=== PATIENT | male | born 1975 | race Caucasian/White ===

== ENCOUNTER 2019-08-13 15:42 | Emergency (ER) | payer MEDICAID ==
[2019-08-13] MEDS ORDERED: Sodium Chloride 0.9% 1000 ML 1,000 ML IV STA ×2 (16:02→18:17)
[2019-08-13] MEDS ORDERED: Hydromorphone 1 mg/ml Ampule IV ONE ×2 (16:02→16:47)
[2019-08-13] MEDS ORDERED: BENADRYL 50 MG/ML IV ONE (16:02)
[2019-08-13] MEDS ORDERED: Sodium Chloride 0.9% 1000 ML 1,000 ML ONE ×2 (16:07→18:19)
[2019-08-13] MEDS ORDERED: Hydromorphone 1 mg/ml Ampule ONE ×2 (16:07→16:47)
[2019-08-13] MEDS ORDERED: BENADRYL 50 MG/ML ONE (16:07)
--- NOTE | 2019-08-13 16:09 | ERPHSYRPT ---
- History of Present Illness Time Seen by Provider: 08/13/19 15:55 Historian: patient Exam Limitations: no limitations Physician History: Patient began having severe right lower abdominal pain/right flank pain after eating lunch prior to coming into the emergency department. Timing/Duration: hour(s) (3) Activities at Onset: none Quality: sharpness Abdominal Pain Onset Location: RLQ, flank (right) Pain Radiation: flank (right) Severity of Pain-Max: severe Severity of Pain-Current: severe Modifying Factors: Improves With: nothing Associated Symptoms: diaphoresis, No back, No chest pain, No diarrhea, No fever/ chills, No fatigue, No headache, No heartburn, No loss of appetite, No nausea, No neck pain, No rash, No shortness of breath, No syncope, No testicular pain, No vomiting, No weakness Previous symptoms: no prior history, no recent treatment Allergies/Adverse Reactions: No Known Drug Allergies Allergy (Verified 08/13/19 15:53) Home Medications: No Home Meds 05/10/12 [History] Hx Tetanus, Diphtheria Vaccination/Date Given: No Hx Influenza Vaccination/Date Given: No (REFUSE) Hx Pneumococcal Vaccination/Date Given: No (REFUSE) - Review of Systems Constitutional: No Fever, No Chills, No Fatigue Eyes: No Eye Pain, No Vision Changes Ears, Nose, & Throat: No Mouth Swelling, No Throat Swelling, No Painful Swallowing Respiratory: No Cough, No Dyspnea Cardiac: No Chest Pain, No Palpitations, No Syncope Abdominal/Gastrointestinal: Abdominal Pain, No Nausea, No Vomiting, No Constipation, No Hematemesis, No Hematochezia, No Melena Genitourinary Symptoms: Flank Pain, No Dysuria, No Frequency, No Hematuria, No Urinary Retention Musculoskeletal: No Back Pain, No Neck Pain Skin: No Pruritis, No Rash Neurological: No Focal Weakness, No Paralysis, No Parasthesia Psychological: No Anxiety Endocrine: No Excessive Sweating Hematologic/Lymphatic: No Easy Bleeding, No Easy Bruising All Other Systems: Reviewed and Negative - Past Medical History Pertinent Past Medical History: No Neurological History: No Pertinent History ENT History: No Pertinent History Cardiac History: No Pertinent History Respiratory History: No Pertinent History Endocrine Medical History: No Pertinent History Musculoskeletal History: No Pertinent History GI Medical History: No Pertinent History History: No Pertinent History Psycho-Social History: No Pertinent History Male Reproductive Disorders: No Pertinent History - Past Surgical History Past Surgical History: No Neuro Surgical History: No Pertinent History Cardiac: No Pertinent History Respiratory: No Pertinent History Gastrointestinal: No Pertinent History Genitourinary: No Pertinent History Musculoskeletal: No Pertinent History Male Surgical History: No Pertinent History - Social History Smoking Status: Former smoker Exposure to second hand smoke: No Drug Use: none Patient Lives Alone: No - Nursing Vital Signs Nursing Vital Signs: Initial Vital Signs Temperature 97.7 F 08/13/19 15:55 Pulse Rate 62 08/13/19 15:55 Respiratory Rate 20 08/13/19 15:55 Blood Pressure 130/79 08/13/19 15:55 O2 Sat by Pulse Oximetry 98 08/13/19 15:55 Pain Scale Pain Intensity 8 - Physical Exam General Appearance: mild distress Eye Exam: PERRL/EOMI, eyes nml inspection, No scleral icterus Ears, Nose, Throat Exam: pharynx normal, moist mucous membranes Neck Exam: normal inspection, non-tender, supple, full range of motion, No meningismus Respiratory Exam: normal breath sounds, lungs clear, airway intact, No chest tenderness, No respiratory distress, No diminished breath sounds, No accessory muscle use, No crackles/rales, No rhonchi, No wheezing, No stridor Cardiovascular Exam: regular rate/rhythm, normal heart sounds, normal peripheral pulses, capillary refill <2 sec, No friction rub Gastrointestinal/Abdomen Exam: soft, normal bowel sounds, No tenderness, No distention, No mass, No guarding, No ecchymosis, No rebound, No hernia Extremity Exam: normal inspection, normal range of motion, pelvis stable Neurologic Exam: alert, oriented x 3, cooperative, 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 Tiny mesenteric lymph nodes with stranding favoring adenitis at the left mid abdomen. No free fluid/area. Tiny calcified splenic granulomas. Mild sigmoid diverticulosis. Remaining liver, gallbladder, pancreas, spleen, adrenal glands, left kidney, left ureter, bladder , and aorta appear unremarkable for noncontrast exam. Osseous structures intact.) Ordered Tests: Active Orders 24 hr Category Date Time Status IV Insertion STAT Care 08/13/19 16:02 Active NPO (ED) STAT Care 08/13/19 16:02 Active Oxygen-ED Only Nasal Cannula 2 lpm Care 08/13/19 16:57 Active ABDOMEN AND PELVIS W/0 CONTRAS [CT] Stat Exams 08/13/19 16:03 Completed AMYLASE Stat Lab 08/13/19 16:15 Completed CBC W DIFF Stat Lab 08/13/19 16:15 Completed CMP Stat Lab 08/13/19 16:15 Completed LIPASE Stat Lab 08/13/19 16:15 Completed Lactic Acid Stat Lab 08/13/19 16:15 Completed Lactic Acid Stat Lab 08/13/19 18:48 Completed UA W/RFX UR CULTURE Stat Lab 08/13/19 17:53 Completed Medication Summary Generic Name Dose Route Start Last Admin Trade Name Freq PRN Reason Stop Dose Admin Sodium Chloride 1,000 mls @ 999 mls/hr 08/13/19 18:17 08/13/19 18:20 Sodium Chloride 0.9% 1000 Ml IV 08/13/19 19:17 999 mls/hr .Q1H1M STA Administration Discontinued Medications Generic Name Dose Route Start Last Admin Trade Name Freq PRN Reason Stop Dose Admin Diphenhydramine HCl 25 mg 08/13/19 16:02 08/13/19 16:11 Benadryl 50 Mg/Ml IV 08/13/19 16:03 25 mg STAT ONE Administration Diphenhydramine HCl Confirm 08/13/19 16:07 Benadryl 50 Mg/Ml Administered 08/13/19 16:08 Dose 50 mg .ROUTE .STK-MED ONE Hydromorphone HCl 1 mg 08/13/19 16:02 08/13/19 16:10 Hydromorphone 1 Mg/Ml Ampule IV 08/13/19 16:03 1 mg STAT ONE Administration Hydromorphone HCl Confirm 08/13/19 16:07 Hydromorphone 1 Mg/Ml Ampule Administered 10/21/19 16:08 Dose 1 mg .ROUTE .STK-MED ONE Hydromorphone HCl 1 mg 08/13/19 16:47 08/13/19 16:49 Hydromorphone 1 Mg/Ml Ampule IV 08/13/19 16:48 1 mg STAT ONE Administration Hydromorphone HCl Confirm 08/13/19 16:47 Hydromorphone 1 Mg/Ml Ampule Administered 08/13/19 16:48 Dose 1 mg .ROUTE .STK-MED ONE Sodium Chloride 1,000 mls @ 999 mls/hr 08/13/19 16:02 08/13/19 17:12 Sodium Chloride 0.9% 1000 Ml IV 08/13/19 17:02 Infused .Q1H1M STA Infusion Sodium Chloride Confirm 08/13/19 16:07 Sodium Chloride 0.9% 1000 Ml Administered 08/13/19 16:08 Dose 1,000 mls @ ud .ROUTE .STK-MED ONE Sodium Chloride Confirm 08/13/19 18:19 Sodium Chloride 0.9% 1000 Ml Administered 08/13/19 18:20 Dose 1,000 mls @ ud .ROUTE .STK-MED ONE Ketorolac Tromethamine 30 mg 08/13/19 17:05 08/13/19 17:09 Toradol 30 Mg Injection IV 08/13/19 17:06 30 mg STAT ONE Administration Ketorolac Tromethamine Confirm 08/13/19 17:06 Toradol 30 Mg Injection Administered 08/13/19 17:07 Dose 30 mg .ROUTE .STK-MED ONE Morphine Sulfate 4 mg 08/13/19 18:30 08/13/19 18:32 Morphine Sulfate 4 Mg Inj IV 08/13/19 18:31 4 mg STAT ONE Administration Morphine Sulfate Confirm 08/13/19 18:31 Morphine Sulfate 4 Mg Inj Administered 08/13/19 18:32 Dose 4 mg .ROUTE .STK-MED ONE Lab/Rad Data: Laboratory Result Diagrams 08/13/19 16:15 08/13/19 16:15 Laboratory Results 08/13/19 08/13/19 08/13/19 Range/Units 18:48 17:53 16:15 WBC (4.0-10.5) K/mm3 RBC (4.1-5.6) M/mm3 Hgb (12.5-18.0) gm/dl Hct (42-50) % MCV (78-100) fl MCH (26-32) pg MCHC (32-36) g/dl RDW (11.5-14.0) % Plt Count (150-450) K/mm3 MPV (6-9.5) fl Gran % (36.0-66.0) % Eos # (Auto) (0-0.5) Absolute Lymphs (auto) (1.0-4.6) Absolute Monos (auto) (0.0-1.3) Lymphocytes % (24.0-44.0) % Monocytes % (0.0-12.0) % Eosinophils % (0.00-5.0) % Basophils % (0.0-0.4) % Absolute Granulocytes (1.4-6.9) Basophils # (0-0.4) Sodium 143 (137-145) mmol/L Potassium 4.0 (3.5-5.1) mmol/L Chloride 102 (98-107) mmol/L Carbon Dioxide 29 (22-30) mmol/L Anion Gap 15.1 H (5-15) MEQ/L BUN 11 (9-20) mg/dL Creatinine 1.01 (0.66-1.25) mg/dL Estimated GFR > 60.0 ML/MIN Glucose 135 H (74-106) mg/dL Lactic Acid 1.2 (0.4-2.0) Calcium 9.1 (8.4-10.2) mg/dL Total Bilirubin 1.00 (0.2-1.3) mg/dL AST 26 (17-59) U/L ALT 24 (0-50) U/L Alkaline Phosphatase 66 (38-126) U/L Serum Total Protein 7.2 (6.3-8.2) g/dL Albumin 4.4 (3.5-5.0) g/dL Amylase 96 (30-110) U/L Lipase 137 (23-300) U/L Urine Color YELLOW (YELLOW) Urine Appearance SLIGHTLY CLOUDY (CLEAR) Urine pH 5.0 (5-6) Ur Specific [place] 1.019 (1.005-1.025) Urine Protein NEGATIVE (Negative) Urine Ketones NEGATIVE (NEGATIVE) Urine Blood LARGE (0-5) Armando/ul Urine Nitrite NEGATIVE (NEGATIVE) Urine Bilirubin NEGATIVE (NEGATIVE) Urine Urobilinogen 2 (0-1) mg/dL Ur Leukocyte Esterase NEGATIVE (NEGATIVE) Urine WBC (Auto) 11-15 (0-5) /HPF Urine RBC (Auto) >101 (0-2) /HPF U Epithel Cells (Auto) NONE (FEW) /HPF Urine Bacteria (Auto) NONE (NEGATIVE) /HPF Urine Mucus (Auto) MANY (NEGATIVE) /HPF Urine Culture Reflexed NO (NO) Urine Glucose NEGATIVE (NEGATIVE) mg/dL 08/13/19 08/13/19 Range/Units 16:15 16:15 WBC 7.5 (4.0-10.5) K/mm3 RBC 4.84 (4.1-5.6) M/mm3 Hgb 14.8 (12.5-18.0) gm/dl Hct 43.7 (42-50) % MCV 90.3 (78-100) fl MCH 30.6 (26-32) pg MCHC 33.9 (32-36) g/dl RDW 12.8 (11.5-14.0) % Plt Count 181 (150-450) K/mm3 MPV 12.7 H (6-9.5) fl Gran % 55.5 (36.0-66.0) % Eos # (Auto) 0.17 (0-0.5) Absolute Lymphs (auto) 2.59 (1.0-4.6) Absolute Monos (auto) 0.56 (0.0-1.3) Lymphocytes % 34.4 (24.0-44.0) % Monocytes % 7.4 (0.0-12.0) % Eosinophils % 2.3 (0.00-5.0) % Basophils % 0.4 (0.0-0.4) % Absolute Granulocytes 4.17 (1.4-6.9) Basophils # 0.03 (0-0.4) Sodium (137-145) mmol/L Potassium (3.5-5.1) mmol/L Chloride (98-107) mmol/L Carbon Dioxide (22-30) mmol/L Anion Gap (5-15) MEQ/L BUN (9-20) mg/dL Creatinine (0.66-1.25) mg/dL Estimated GFR ML/MIN Glucose (74-106) mg/dL Lactic Acid 2.2 H (0.4-2.0) Calcium (8.4-10.2) mg/dL Total Bilirubin (0.2-1.3) mg/dL AST (17-59) U/L ALT (0-50) U/L Alkaline Phosphatase (38-126) U/L Serum Total Protein (6.3-8.2) g/dL Albumin (3.5-5.0) g/dL Amylase (30-110) U/L Lipase (23-300) U/L Urine Color (YELLOW) Urine Appearance (CLEAR) Urine pH (5-6) Ur Specific [place] (1.005-1.025) Urine Protein (Negative) Urine Ketones (NEGATIVE) Urine Blood (0-5) Armando/ul Urine Nitrite (NEGATIVE) Urine Bilirubin (NEGATIVE) Urine Urobilinogen (0-1) mg/dL Ur Leukocyte Esterase (NEGATIVE) Urine WBC (Auto) (0-5) /HPF Urine RBC (Auto) (0-2) /HPF U Epithel Cells (Auto) (FEW) /HPF Urine Bacteria (Auto) (NEGATIVE) /HPF Urine Mucus (Auto) (NEGATIVE) /HPF Urine Culture Reflexed (NO) Urine Glucose (NEGATIVE) mg/dL - Progress Progress: improved Progress Note: 08/13/19 19:01 Patient's pain is better improved. Patient's lactic acid improved with IV hydration. Patient will be discharged home as he has no acute intra-abdominal findings, no acute renal failure, no signs of infection on [place] urinalysis, and no immediate urologic intervention needed. Counseled pt/family regarding: lab results, diagnosis, need for follow-up, rad results - Departure Departure Disposition: Home, In-patient Admission Clinical Impression: Ureteral colic, Lower obstructive uropathy, Ureterolithiasis, Mesenteric adenitis, Sigmoid diverticulosis Condition: Good Critical Care Time: No Referrals: ROLANDA TIMMONS [Primary Care Provider] - 08/14/19 Instructions: Acute Abdomen (Belly Pain), Adult (DC), Kidney Stones (DC), Diverticulosis (DC) Additional Instructions: Return immediately back to the emergency department if any worsening pain, inability to take medications, uncontrollable vomiting, new fever, inability urinate, or any other concerning signs or symptoms that were not present at today's emergency department visit for immediate re-evaluation in the emergency department. Prescriptions: Oxycodone HCl/Acetaminophen [Percocet 5-325 mg Tablet] 1 each PO Q6H PRN PRN # 12 tablet MDD 4 PRN Reason: Pain Ondansetron ODT 4 MG [Zofran Odt 4 mg] 4 mg PO Q8H PRN PRN #10 tab.rapdis PRN Reason: Nausea Tamsulosin HCl 0.4 mg [Flomax 0.4 MG] 0.4 mg PO DAILY #7 cap
[2019-08-13 16:19] LABS: Absolute Neutrophil Ct (ANC) 4.17 (1.4-6.9); BASOPHIL % 0.4 % (0.0-0.4); Basophil (Absolute #) 0.03 (0-0.4); Eosinophil % 2.3 % (0.00-5.0); Eosinophil (Absolute #) 0.17 (0-0.5); Hematocrit 43.7 % (42-50); Hemoglobin 14.8 gm/dl (12.5-18.0); Lymphocyte (Absolute #) 2.59 (1.0-4.6); Lymphocytes % 34.4 % (24.0-44.0); Mean Cell Volume 90.3 fl (78-100); Mean Corpuscular Hemoglobin 30.6 pg (26-32); Mean Corpuscular Hgb Concent. 33.9 g/dl (32-36); Mean Platelet Volume 12.7 fl (6-9.5); Monocyte (Absolute #) 0.56 (0.0-1.3); Monocytes % 7.4 % (0.0-12.0); Neutrophil % 55.5 % (36.0-66.0); Platelet Count 181 K/mm3 (150-450); Red Blood Count 4.84 M/mm3 (4.1-5.6); Red Cell Distribution Width 12.8 % (11.5-14.0); White Blood Count 7.5 K/mm3 (4.0-10.5)
[2019-08-13 16:20] LABS: Lactic Acid 2.2 (0.4-2.0)
[2019-08-13 16:32] LABS: ALBUMIN 4.4 g/dL (3.5-5.0); ALKALINE PHOSPHATASE 66 U/L (38-126); AMYLASE 96 U/L (30-110); ANION GAP 15.1 MEQ/L (5-15); BLOOD UREA NITROGEN 11 mg/dL (9-20); CHLORIDE 102 mmol/L (98-107); Calcium 9.1 mg/dL (8.4-10.2); Carbon Dioxide 29 mmol/L (22-30); Creatinine 1 1.01 mg/dL (0.66-1.25); Glucose 135 mg/dL (74-106); LIPASE 137 U/L (23-300); SGOT/AST 26 U/L (17-59); SGPT/ALT 24 U/L (0-50); SODIUM 143 mmol/L (137-145); Total Protein 7.2 g/dL (6.3-8.2)
[2019-08-13 16:54] VITALS: PULSE 60
--- NOTE | 2019-08-13 17:01 | XRAY ---
Indication: Right flank/right lower quadrant pain. Multiple contiguous axial images obtained through the abdomen and pelvis without contrast as ordered. Comparison: None Lung bases demonstrates posterior right lower lobe calcified granuloma. No infiltrate or effusion. Heart is not enlarged. Stomach is distended with food/fluid. Noncontrasted stomach and bowel loops appear nonobstructed. Normal appendix. Minimal sigmoid diverticulosis. 1-2 mm distal right ureter calculus just proximal to the UVJ. Proximal right ureter is slightly prominent up to 5-6 mm along with mild hydronephrosis consistent with partial obstructive uropathy. Left mid abdomen demonstrates a few tiny mesenteric nodes with stranding favoring adenitis. No free fluid/air. Tiny calcified splenic granulomas. Remaining liver, gallbladder, pancreas, spleen, adrenal glands, left kidney, left ureter, bladder, and aorta appear unremarkable for noncontrast exam. Osseous structures intact. Impression: 1. 1-2 mm distal right ureter calculus producing partial obstruction. 2. Tiny mesenteric lymph nodes with stranding favoring adenitis. 3. Minimal sigmoid diverticulosis. CTDI 15.95.
[2019-08-13] MEDS ORDERED: TORAdol 30 mg Injection IV ONE (17:05)
[2019-08-13] MEDS ORDERED: TORAdol 30 mg Injection ONE (17:06)
[2019-08-13 18:18] LABS: Appearance SLIGHTLY CLOUDY (CLEAR); Bilirubin NEGATIVE (NEGATIVE); Blood LARGE Ery/ul (0-5); Glucose NEGATIVE (NEGATIVE); Ketones NEGATIVE (NEGATIVE); Leukocyte Esterase NEGATIVE (NEGATIVE); Mucus MANY /HPF (NEGATIVE); Nitrite NEGATIVE (NEGATIVE); Protein,Urine Dip NEGATIVE (Negative); Specific Gravity 1.019 (1.005-1.025); Urobilinogen 2 mg/dL (0-1)
[2019-08-13 18:21] VITALS: BP 109/72; O2SAT 98
[2019-08-13 18:26] LABS: RBC >101 /HPF (0-2)
[2019-08-13] MEDS ORDERED: MORPHINE SULFATE 4 MG INJ IV ONE (18:30)
[2019-08-13] MEDS ORDERED: MORPHINE SULFATE 4 MG INJ ONE (18:31)
== END 2019-08-13 19:22 | disposition home or self-care (01) ==
LOC: ED 15:42
DX: N20.1 Calculus of ureter (principal); N13.9 Obstructive and reflux uropathy, unspecified; Z87.442 Personal history of urinary calculi; I88.0 Nonspecific mesenteric lymphadenitis; K57.30 Diverticulosis of large intestine without perforation or abscess without bleeding
CPT/HCPCS: 36000; 36415; 74176; 80053; 81001; 82150; 83605; 83690; 85025; 96360; 96374; 96375; 96376; 99285; J1170; J1200; J1885; J2270

== ENCOUNTER 2020-04-08 21:31 | Emergency (ER) | payer MEDICAID ==
[2020-04-08] MEDS ORDERED: Zofran 4 MG/2 ML VIAL IV ONE (22:04)
[2020-04-08] MEDS ORDERED: Sodium Chloride 0.9% 1000 ML 1,000 ML IV STA (22:04)
[2020-04-08] MEDS ORDERED: MORPHINE SULFATE 2 MG INJ IV ONE (22:04)
[2020-04-08] MEDS ORDERED: Sodium Chloride 0.9% 1000 ML 1,000 ML ONE (22:17)
--- NOTE | 2020-04-08 22:23 | ERPHSYRPT ---
- History of Present Illness Time Seen by Provider: 04/08/20 21:50 Historian: patient Exam Limitations: no limitations Patient Subjective Stated Complaint: pt states that he was using a cord drill to drill through concrete, pt states that the drill had jammed and spun around at hit the pt left ribs and back, pt states that he had appointment with primary doctor tomorrow but doctor office cancled appointment, pt states that the pain has been increasing the past couple of days Triage Nursing Assessment: pt ambulated into the er, pt is axo x3, pt is anxious, c/o pain to left rib and left back, deformity to the left lower ribs, bruising to left middle rib and left middle back, c/o 5/10 pain to left ribs, tenderness present to left ribs upon palpation Physician History: Patient is a 45-year-old male presents to our ED with left upper quadrant and flank pain. Patient states he injured himself Tuesday, 3 days ago. Patient was drilling into concrete when the drill got stuck into the concrete and rotated the drill thereby striking him onto his left side. Patient's pain has gotten progressively worse over the past several days. No other injuries reported. Pain described as an ache that is well localized to the left flank. Pain tends to radiate to his back. Pain worse with movement and palpation. Pain improved with rest. Pain is mild to moderate in intensity. Patient declined pain medication. Patient voices no other complaints at this time. 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.) Quality: aching Abdominal Pain Onset Location: [facility] Pain Radiation: back Severity of Pain-Max: moderate Severity of Pain-Current: mild Modifying Factors: Improves With: movement, palpation Previous symptoms: no prior history Allergies/Adverse Reactions: No Known Drug Allergies Allergy (Verified 04/08/20 21:39) Hx Tetanus, Diphtheria Vaccination/Date Given: No (REFUSE) Hx Influenza Vaccination/Date Given: No (REFUSE) Hx Pneumococcal Vaccination/Date Given: No (REFUSE) Travel Risk - International Travel Have you traveled outside of the country in past 3 weeks: No - Coronavirus Screening Are you exhibiting any of the following symptoms?: No Close contact with a COVID-19 positive Pt in past 14-21 Days: No - Review of Systems Constitutional: No Symptoms, No Fever, No Chills Eyes: No Symptoms Ears, Nose, & Throat: No Symptoms Respiratory: No Symptoms, No Cough, No Dyspnea Cardiac: No Symptoms, No Chest Pain, No Edema, No Syncope Abdominal/Gastrointestinal: No Symptoms, No Abdominal Pain, No Nausea, No Vomiting, No Diarrhea Genitourinary Symptoms: No Symptoms, No Dysuria Musculoskeletal: No Symptoms, No Back Pain, No Neck Pain Skin: No Symptoms, No Rash Neurological: No Symptoms, No Dizziness, No Focal Weakness, No Sensory Changes Psychological: No Symptoms Endocrine: No Symptoms Hematologic/Lymphatic: No Symptoms Immunological/Allergic: No Symptoms All Other Systems: Reviewed and Negative - Past Medical History Pertinent Past Medical History: No Neurological History: No Pertinent History ENT History: No Pertinent History Cardiac History: No Pertinent History Respiratory History: No Pertinent History Endocrine Medical History: No Pertinent History Musculoskeletal History: No Pertinent History GI Medical History: No Pertinent History History: No Pertinent History Psycho-Social History: No Pertinent History Male Reproductive Disorders: No Pertinent History - Past Surgical History Past Surgical History: No Neuro Surgical History: No Pertinent History Cardiac: No Pertinent History Respiratory: No Pertinent History Gastrointestinal: No Pertinent History Genitourinary: No Pertinent History Musculoskeletal: No Pertinent History Male Surgical History: No Pertinent History - Social History Smoking Status: Former smoker Exposure to second hand smoke: No Drug Use: none Patient Lives Alone: No - Nursing Vital Signs Nursing Vital Signs: Initial Vital Signs Temperature 98.9 F 04/08/20 21:40 Pulse Rate 74 04/08/20 21:40 Respiratory Rate 20 04/08/20 21:40 Blood Pressure 131/87 04/08/20 21:40 O2 Sat by Pulse Oximetry 97 04/08/20 21:40 Pain Scale Pain Intensity [Left Back] 5 Pain Intensity [Left Chest] 5 Pain Intensity 5 - Physical Exam General Appearance: no apparent distress, alert Eye Exam: PERRL/EOMI, eyes nml inspection Ears, Nose, Throat Exam: normal ENT inspection, pharynx normal, moist mucous membranes Neck Exam: normal inspection, non-tender, supple, full range of motion Respiratory Exam: normal breath sounds, lungs clear, No respiratory distress Cardiovascular Exam: regular rate/rhythm, normal heart sounds Gastrointestinal/Abdomen Exam: soft, tenderness, other (Tenderness to palpation at left upper quadrant left flank and posterior lateral rib area. Overlying soft tissue intact. No trauma no ecchymosis. Negative Castro Canas sign. Negative Nenzel sign. Lungs are clear to auscultation bilaterally.), No mass Male Genitalia Exam: normal genitalia Back Exam: normal inspection, normal range of motion, No CVA tenderness, No vertebral tenderness Extremity Exam: normal inspection, normal range of motion, pelvis stable Neurologic Exam: alert, oriented x 3, cooperative, normal mood/affect, nml cerebellar function, sensation nml, No motor deficits Skin Exam: normal color, warm, dry SpO2 Interpretation: normal SpO2: 97 O2 Delivery: Room Air - Course Nursing assessment & vital signs reviewed: Yes - CT Exams Abdomen/Pelvis CT Interpretation: Tele-radiologist Report (Stigmata of old granulomatous disease, nonspecific bowel wall thickening and haziness in the mesentery, please correlate for evidence of enteritis. Patient has no clinical evidence of enteritis.) Ordered Tests: Active Orders 24 hr Category Date Time Status IV Insertion STAT Care 04/08/20 22:04 Active ABDOMEN AND PELVIS W CONTRAST [CT] Stat Exams 04/08/20 22:10 Taken CBC W DIFF Stat Lab 04/08/20 22:25 Completed CMP Stat Lab 04/08/20 22:25 Completed LIPASE Stat Lab 04/08/20 22:25 Completed TROPONIN Q3H Lab 04/08/20 22:25 Completed TROPONIN Q3H Lab 04/09/20 01:15 Ordered TROPONIN Q3H Lab 04/09/20 04:15 Ordered TROPONIN Q3H Lab 04/09/20 07:15 Ordered TROPONIN Q3H Lab 04/09/20 10:15 Ordered UA W/RFX UR CULTURE Stat Lab 04/08/20 22:10 Uncollected Medication Summary Discontinued Medications Generic Name Dose Route Start Last Admin Trade Name Freq PRN Reason Stop Dose Admin Sodium Chloride 1,000 mls @ 999 mls/hr 04/08/20 22:04 04/08/20 23:32 Sodium Chloride 0.9% 1000 Ml IV 04/08/20 23:04 Infused .Q1H1M STA Infusion Sodium Chloride Confirm 04/08/20 22:17 Sodium Chloride 0.9% 1000 Ml Administered 04/08/20 22:18 Dose 1,000 mls @ ud .ROUTE .STK-MED ONE Morphine Sulfate 2 mg 04/08/20 22:04 04/08/20 22:46 Morphine Sulfate 2 Mg Inj IV 04/08/20 22:05 2 mg STAT ONE Administration Morphine Sulfate Confirm 04/08/20 22:38 Morphine Sulfate 2 Mg Inj Administered 04/08/20 22:39 Dose 2 mg .ROUTE .STK-MED ONE Ondansetron HCl 4 mg 04/08/20 22:04 04/08/20 22:40 Zofran 4 Mg/2 Ml Vial IV 04/08/20 22:05 4 mg STAT ONE Administration Ondansetron HCl Confirm 04/08/20 22:38 Zofran 4 Mg/2 Ml Vial Administered 04/08/20 22:39 Dose 4 mg .ROUTE .STK-MED ONE Lab/Rad Data: Laboratory Result Diagrams 04/08/20 22:25 04/08/20 22:25 Laboratory Results 04/08/20 04/08/20 04/08/20 Range/Units 22:25 22:25 22:25 WBC 9.2 (4.0-10.5) K/mm3 RBC 4.93 (4.1-5.6) M/mm3 Hgb 15.1 (12.5-18.0) gm/dl Hct 44.6 (42-50) % MCV 90.5 (78-100) fl MCH 30.6 (26-32) pg MCHC 33.9 (32-36) g/dl RDW 12.6 (11.5-14.0) % Plt Count 186 (150-450) K/mm3 MPV 12.2 H (7.5-11.0) fl Gran % 66.4 H (36.0-66.0) % Eos # (Auto) 0.22 (0-0.5) Absolute Lymphs (auto) 2.25 (1.0-4.6) Absolute Monos (auto) 0.61 (0.0-1.3) Lymphocytes % 24.4 (24.0-44.0) % Monocytes % 6.6 (0.0-12.0) % Eosinophils % 2.4 (0.00-5.0) % Basophils % 0.2 (0.0-0.4) % Absolute Granulocytes 6.14 (1.4-6.9) Basophils # 0.02 (0-0.4) Sodium 140 (137-145) mmol/L Potassium 3.9 (3.5-5.1) mmol/L Chloride 103 (98-107) mmol/L Carbon Dioxide 29 (22-30) mmol/L Anion Gap 12.4 (5-15) MEQ/L BUN 9 (9-20) mg/dL Creatinine 0.87 (0.66-1.25) mg/dL Estimated GFR > 60.0 ML/MIN Glucose 124 H (74-106) mg/dL Calcium 9.2 (8.4-10.2) mg/dL Total Bilirubin 1.30 (0.2-1.3) mg/dL AST 25 (17-59) U/L ALT 20 (0-50) U/L Alkaline Phosphatase 66 (38-126) U/L Troponin I < 0.012 (0.000-0.034) ng/mL Serum Total Protein 7.3 (6.3-8.2) g/dL Albumin 4.4 (3.5-5.0) g/dL Lipase 72 (23-300) U/L - Progress Progress: improved Progress Note: 04/09/20 00:01 Patient reassessed. Work-up essentially negative. Nonspecific bowel wall thickening and haziness in the mesentery possible enteritis. Patient has no clinical evidence of enteritis. No splenic injury. No fractures. Patient will be discharged home. Patient follow-up with his primary care doctor within 48 hours for reevaluation. Counseled pt/family regarding: lab results, diagnosis, need for follow-up, rad results - Departure Departure Disposition: Home Clinical Impression: Contusion, flank, Abdominal contusion Condition: Stable Critical Care Time: No Referrals: ROLANDA TIMMONS [Primary Care Provider] - Additional Instructions: Discharge/Care Plan ROLANDA ORTEGA was seen on 04/09/20 in the Emergency Room. The patient was counseled regarding Diagnosis,Lab results, Imaging studies, need for follow up and when to return to the Emergency Room. Prescriptions given: Discharge Note I have spoken with the patient and/or caregivers. I have explained the patient's condition, diagnosis and treatment plan based on the information available to me at this time. I have answered the patient's and/or caregiver's questions and addressed any concerns. The patient and/or caregivers have as good understanding of the patient's diagnosis, condition and treatment plan as can be expected at this point. The vital signs have been stable. The patient's condition is stable and appropriate for discharge from the emergency department. The patient will pursue further outpatient evaluation with the primary care physician or other designated or consulting physician as outlined in the discharge instructions. The patient and/or caregivers are agreeable to this plan of care and follow-up instructions have been explained in detail. The patient and/or caregivers have received these instruction. The patient/and or caregivers are aware that any significant change in condition or worsening of symptoms should prompt an immediate return to this or the closest emergency department or call 911.
[2020-04-08 22:31] LABS: Absolute Neutrophil Ct (ANC) 6.14 (1.4-6.9); BASOPHIL % 0.2 % (0.0-0.4); Basophil (Absolute #) 0.02 (0-0.4); Eosinophil % 2.4 % (0.00-5.0); Eosinophil (Absolute #) 0.22 (0-0.5); Hematocrit 44.6 % (42-50); Hemoglobin 15.1 gm/dl (12.5-18.0); Lymphocyte (Absolute #) 2.25 (1.0-4.6); Lymphocytes % 24.4 % (24.0-44.0); Mean Cell Volume 90.5 fl (78-100); Mean Corpuscular Hemoglobin 30.6 pg (26-32); Mean Corpuscular Hgb Concent. 33.9 g/dl (32-36); Mean Platelet Volume 12.2 fl (7.5-11.0); Monocyte (Absolute #) 0.61 (0.0-1.3); Monocytes % 6.6 % (0.0-12.0); Neutrophil % 66.4 % (36.0-66.0); Platelet Count 186 K/mm3 (150-450); Red Blood Count 4.93 M/mm3 (4.1-5.6); Red Cell Distribution Width 12.6 % (11.5-14.0); White Blood Count 9.2 K/mm3 (4.0-10.5)
[2020-04-08] MEDS ORDERED: MORPHINE SULFATE 2 MG INJ ONE (22:38)
[2020-04-08] MEDS ORDERED: Zofran 4 MG/2 ML VIAL ONE (22:38)
[2020-04-08 22:48] LABS: ALBUMIN 4.4 g/dL (3.5-5.0); ALKALINE PHOSPHATASE 66 U/L (38-126); ANION GAP 12.4 MEQ/L (5-15); BLOOD UREA NITROGEN 9 mg/dL (9-20); CHLORIDE 103 mmol/L (98-107); Calcium 9.2 mg/dL (8.4-10.2); Carbon Dioxide 29 mmol/L (22-30); Creatinine 1 0.87 mg/dL (0.66-1.25); Glucose 124 mg/dL (74-106); LIPASE 72 U/L (23-300); Potassium 3.9 mmol/L (3.5-5.1); SGOT/AST 25 U/L (17-59); SGPT/ALT 20 U/L (0-50); SODIUM 140 mmol/L (137-145); Total Protein 7.3 g/dL (6.3-8.2)
[2020-04-09 00:02] VITALS: BP 104/67; PULSE 57; O2SAT 97
[2020-04-09 00:32] LABS: Appearance CLEAR (CLEAR); Bacteria NONE SEEN /HPF (NEGATIVE); Bilirubin NEGATIVE (NEGATIVE); Blood NEGATIVE Ery/ul (0-5); Glucose NEGATIVE (NEGATIVE); Ketones NEGATIVE (NEGATIVE); Leukocyte Esterase NEGATIVE (NEGATIVE); Mucus SLIGHT /HPF (NEGATIVE); Nitrite NEGATIVE (NEGATIVE); Protein,Urine Dip NEGATIVE (Negative); RBC 0-2 /HPF (0-2); Specific Gravity 1.028 (1.005-1.025); Sperm PRESENT /HPF (NEGATIVE); Urobilinogen NEGATIVE mg/dL (0-1); WBC 0-2 /HPF (0-5)
--- NOTE | 2020-04-09 08:52 | XRAY ---
Indication: Pain following blunt trauma to the back. Possible splenic laceration. Multiple contiguous axial images obtained through the abdomen and pelvis using 80 cc Isovue 370 contrast only. Comparison: August 13, 2019. Lung bases demonstrates minimal bibasilar dependent atelectasis with stable right lower lobe calcified granulomas. No infiltrate or effusion. Heart is not enlarged. Noncontrasted stomach and bowel loops appear nonobstructed. Stable minimal sigmoid diverticulosis and splenic calcific granulomas. No free fluid/air. Remaining liver, gallbladder, pancreas, spleen, adrenal glands, kidneys, ureters, bladder, and aorta appear unremarkable. No pathologic retroperitoneal lymphadenopathy. Osseous structures demonstrates new tiny cortical fracture lateral arc left 9th rib. No ventral or inguinal hernias. Impression: 1. Tiny cortical fracture left 9th rib. 2. Stable sigmoid diverticulosis and evidence for old granulomatous disease. Comment: Preliminary interpretation was made by [facility]. No critical discrepancy.
== END 2020-04-09 00:13 | disposition home or self-care (01) ==
LOC: ED 21:31
DX: S30.1XXA Contusion of abdominal wall, initial encounter (principal); W31.0XXA Contact with mining and earth-drilling machinery, initial encounter
CPT/HCPCS: 36000; 36415; 74177; 80053; 81001; 83690; 84484; 85025; 93005; 93041; 94760; 96360; 96374; 96375; 99284; J2270; J2405

== ENCOUNTER 2022-06-25 06:04 | Day surgery (SDC) | payer OTHER ==
[2022-06-25] MEDS ORDERED: Marcaine Mpf 0.5% Vial 30 Ml IJ ONE (06:05)
[2022-06-25] MEDS ORDERED: XYLOCAINE 1% HCL 20 ML MDV ONE (06:18)
[2022-06-25] MEDS ORDERED: Lactated Ringers 1,000 ML IV ONE ×3 (06:18→11:00)
[2022-06-25] MEDS ORDERED: CEFAZOLIN 2 GM-D5W BAG** 2 GM/50 ML ML IV SCH (06:30)
[2022-06-25] MEDS ORDERED: Lactated Ringers 1,000 ML IV SCH (06:30)
[2022-06-25] MEDS ORDERED: CEFAZOLIN 2 GM-D5W BAG** 2 GM/50 ML ML IV ONE (06:48)
[2022-06-25] MEDS ORDERED: Versed 2 MG/2 ML Injection ONE (06:59)
[2022-06-25] MEDS: Versed 2 MG/2 ML Injection IV PRN ×2 (07:02→09:30)
[2022-06-25] MEDS ORDERED: Xylocaine-Mpf 2% 5 Ml Vial ONE (09:29)
[2022-06-25] MEDS ORDERED: Zofran 4 MG/2 ML VIAL ONE (09:29)
[2022-06-25] MEDS ORDERED: Zemuron 100 MG/10 ML ONE (09:29)
[2022-06-25] MEDS ORDERED: SUBLIMAZE 100 MCG/2 ML ONE ×2 (09:29→10:24)
[2022-06-25] MEDS ORDERED: Decadron 4 MG INJ ONE (09:29)
[2022-06-25] MEDS ORDERED: BRIDION 200MG/2ML IV ONE (09:29)
[2022-06-25] MEDS ORDERED: DIPRIVAN 200 MG/20 ML IV ONE (09:29)
[2022-06-25] MEDS ORDERED: TORAdol 30 mg Injection ONE (09:29)
[2022-06-25] MEDS ORDERED: ATROPINE SULFATE 1MG ONE (10:21)
[2022-06-25] MEDS ORDERED: Narcan 0.4 MG/ML ONE (11:12)
[2022-06-25 12:23] VITALS: O2SAT 96
[2022-06-25 12:44] VITALS: BP 134/89; PULSE 56
--- NOTE | 2022-06-29 12:40 | OP ---
SURGERY DATE/TIME: 06/25/2022 1000 PREOPERATIVE DIAGNOSES: 1) Pain left foot. 2) Deep peroneal neuropathy left foot. 3) Soft tissue possible ganglion cyst left foot. 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 POSTOPERATIVE DIAGNOSES: 1) Pain left foot. 2) Deep peroneal neuropathy left foot. 3) Soft tissue possible ganglion cyst left foot. 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 PROCEDURES: 1) Removal of soft tissue mass left foot metatarsal head. 2) Deep peroneal nerve decompression left foot. SURGEON: Moris Cazares DPM. CLINICAL EDUCATION CONSULTANT: None. ANESTHESIA: General with a preoperative ankle block consisting of 30 cc of a 1:1 mixture of 1% lidocaine plain and 0.5% bupivacaine plain to the left lower extremity. INDICATION FOR SURGERY: Heber is a very pleasant 47-year-old male who recently did have surgical intervention with partial bone resections to the fifth and first metatarsals. Initially, the patient had significant success with his procedures however started to develop some pain to the dorsal aspect of the foot that are sharp and shooting in nature. With no history of back pain or impingement, this was determined to be a deep peroneal nerve. Also following the procedure with the other provider, there was development of significant soft tissue swelling at the lateral aspect of the joint capsule this was unbeknownst to the other provider. For that reason the patient sought out a second opinion. It has been approximately four months since that procedure. The patient does have a significant amount of pain associated to the dorsal aspect of the deep peroneal nerve as well as the fifth metatarsal head. Based on x-rays, it does not appear that there any bony consistency to the lateral aspect of the fifth toe and being that there is a recent surgical procedure that has been performed prior to this occurring, the likelihood of the capsule or the synovium of the joint being damaged resulting in a ganglion cyst is relatively high. The patient wishes to proceed with surgical intervention at this time. All risks, benefits and complications of the procedure were discussed with the patient including but not limited to infection, hematoma, seroma, possibility of delayed skin healing, nonskin healing, possibility of delayed bone healing, nonbone healing, possibility of failure of surgical intervention, possible need for surgical intervention at a later date. No guarantees were provided as to the outcome of surgical intervention. Plenty of time was allowed for him and his to ask questions which were answered to their apparent satisfaction. It is with that we decided to proceed. DESCRIPTION OF PROCEDURE AND FINDINGS: The patient is brought into the OR and placed on the OR table in the supine position. At this time a well-padded ankle tourniquet applied to the patient's left ankle. The tourniquet set to 250 mm of Mercury. At this time the left foot was prepped and draped in the typical sterile fashion. At this time the tourniquet was inflated. Attention was directed to the dorsal aspect of the fifth metatarsal where an incision was made through the patient's former cicatrix. Immediately identified was a large encapsulated structure separate from the bone which was resected off of the bone quite easily and resected in totality utilizing a combination of sharp and blunt dissection. The cutaneous nerve was identified and retracted at the plantar aspect of the surgical incision as we were dorsal. At this time this was protected. The soft tissue mass was removed from the site measuring approximately 2 x 2 cm by 5 to 6 mm in depth. The patient's deformity quickly subsided from the cosmetic standpoint and clinical appreciation. At this time copious amounts of sterile saline were utilized to flush this site. The stalk on the surgical mass was identified and cauterized. At this time 4-0 Monocryl was utilized to coapt the subcutaneous skin edges in a simple interrupted-type fashion and 3-0 Nylon was utilized to coapt the skin in a horizontal mattress-type fashion. Following this positive pulses were identified over the dorsal aspect of the foot. Tourniquet was let down. At this time incision was made over the dorsal aspect leading to the first web space almost immediately scar tissue was identified and compression of the inferior extensor retinaculum was identified. The extensor hallucis brevis was also identified to be an aggravating factor almost immediately and a portion of the tendon was resected out in its totality. The deep peroneal nerve was found running next to the arterial vein and a deep impression was performed approximately 4 cm from the dorsal aspect of the foot leading down into the web space to make sure that there were no other compression point. Following this, the site was inspected for any other aggravating factors and the first metaphalangeal joint was flexed to assess for any potential aggravating anatomy which was not appreciated. At this time copious amounts of sterile saline were utilized to flush the surgical site. 4-0 Monocryl was utilized to coapt the subcutaneous skin and 3-0 Nylon was utilized to coapt the skin edges in a horizontal mattress-type fashion. Following this a dressing consisting of Betadine, Adaptic, 4x4, Kerlix and ACACIA were applied to the patient's left foot. The tourniquet was let down at approximately 24 total tourniquet minutes prison through the procedure. The patient was returned to the postoperative anesthesia care unit with vital signs stable and vascular status intact. Postoperative orders as indicated in the patient's discharge chart.
== END 2022-06-25 12:50 | disposition home or self-care (01) ==
LOC: SDC 06:04
PROVIDERS: ATTEND Podiatrist Foot & Ankle Surgery
DX: G57.32 Lesion of lateral popliteal nerve, left lower limb (principal); M67.972 Unspecified disorder of synovium and tendon, left ankle and foot; M19.072 Primary osteoarthritis, left ankle and foot; M79.672 Pain in left foot
CPT/HCPCS: J0461; J0690; J1100; J1885; J2250; J2310; J2405; J2704; J3010

== ENCOUNTER 2023-01-11 09:56 | Day surgery (SDC) | payer OTHER ==
[~2023-01-11 09:56] MED LIST: Marcaine Mpf 0.5% Vial 30 Ml ONE; XYLOCAINE 1% HCL 20 ML MDV ONE
[2023-01-11] MEDS ORDERED: Versed 2 MG/2 ML Injection ONE (11:43)
[2023-01-11] MEDS ORDERED: Xylocaine-Mpf 2% 5 Ml Vial ONE (11:59)
[2023-01-11] MEDS ORDERED: DIPRIVAN 200 MG/20 ML IV ONE ×2 (11:59→12:34)
[2023-01-11] MEDS ORDERED: SUBLIMAZE 100 MCG/2 ML ONE (11:59)
[2023-01-11] MEDS ORDERED: Lactated Ringers 1,000 ML IV SCH (12:00)
[2023-01-11] MEDS ORDERED: CEFAZOLIN 2 GM-D5W BAG** 2 GM/50 ML ML IV SCH (12:00)
[2023-01-11] MEDS ORDERED: Ketamine HCl 50 MG/ML ONE (12:01)
--- NOTE | 2023-01-11 13:05 | XRAY ---
Indication: Left 5th metatarsal head resection. Intraoperative fluoroscopy provided for 13 seconds. 4 digital spot images submitted for interpretation demonstrates resection head 5th metatarsal. Correlate with intraoperative findings/report.
[2023-01-11 13:27] VITALS: O2SAT 99
[2023-01-11 13:43] VITALS: BP 114/76; PULSE 50
--- NOTE | 2023-01-12 08:03 | OP ---
SURGERY DATE/TIME: 01/11/2023 1156 PREOPERATIVE DIAGNOSES: 1) Ganglion cyst left fifth metatarsal head. 2) Hammer toe. 3) Adductovarus rotation of fifth digit. 4) Pain left foot. POSTOPERATIVE DIAGNOSES: 1) Ganglion cyst left fifth metatarsal head. 2) Hammer toe. 3) Adductovarus rotation of fifth digit. 4) Pain left foot. PROCEDURES: 1) Excision of ganglion cyst. 2) Excision of metatarsal head. 3) Capsulotendinous balancing plantar plate fifth metatarsal. SURGEON: Moris Cazares DPM. SAWING AND ASSEMBLY SUPERVISOR: None. ANESTHESIA: Monitored anesthesia care with intraoperative preoperative block consisting of 20 cc of a 1:1 mixture of 1% lidocaine plain and 0.5% bupivacaine plain injected in mini Carson block-type fashion. HEMOSTASIS: Ankle tourniquet set to 250 mm of Mercury for 25 total tourniquet minutes. ESTIMATED BLOOD LOSS: Minimal. INJECTABLES: 20 cc of 1:1 mixture of 1% lidocaine plain and 0.5% bupivacaine plain injected in a mini Carson block-type fashion. INDICATION FOR SURGERY: Heber is a very pleasant 47-year-old male who is well known to my service. The patient had operative procedure to the left foot in regards to a bunion and a tailor's bunion deformity and had a procedure done at [facility] with another provider. Following this, he had good outcomes with his bunionectomy. However, the tailor's bunion started developing an issue on the outside of the fifth metatarsal where it appeared to be growing. An MRI demonstrated some potential for it to be infectious however we proceeded with surgical intervention for deep peroneal decompression as well as excision of a cyst which turned out to be a ganglion cyst. The patient is having symptoms of a recurrence of this cyst at this time. Decision was made to proceed due to the contracture of the toe that had resulted as a recurrence to proceed with a fifth metatarsal head resection and perform some capsulotendinous balancing. The patient understands all risks, complications and benefits of surgical intervention at this time including but not limited to infection, hematoma, seroma, possibility of delayed wound healing, nonwound healing and possibility of recurrence of ganglion cyst, possibility of residual contracture and possible need for surgical intervention at a later date. The patient understands all of this. No guarantees were provided as to the outcome. Plenty of time was allowed for the patient to ask questions which were answered to the patients apparent satisfaction. It is with that we decided to proceed. DESCRIPTION OF PROCEDURE AND FINDINGS: The patient is brought into the OR and placed on the OR table in the supine position. At this time monitored anesthesia care was administered until the patient was sedated. A preoperative block consisting of 20 cc of a 1:1 mixture of 1% lidocaine plain and 0.5% bupivacaine plain was injected in a mini Carson block to the left lower extremity. A well-padded ankle tourniquet was applied to the left lower extremity and the tourniquet was set to 250 mm of Mercury. Following this, the left foot was prepped and draped in the typical sterile fashion and lowered onto the surgical field. At this time an Esmarch was utilized to exsanguinate the foot and the tourniquet was inflated. A linear incision was made in the same foot print of the previous incisions from the cyst excision. At this time we quickly encountered a recurrence of the ganglion cyst which was excised and handed off of the surgical field for pathologic assessment. Following this, the capsule was released. The toe did not sit in the appropriate position so the decision was made to proceed with the metatarsal head resection. This was performed utilizing a sagittal saw with an 18 mm blade, this was performed. Copious amounts of sterile saline were utilized to flush the surgical site and multiple views were checked on fluoroscopy. Final shots were taken at this point. The plantar plate of the fifth metatarsal then was encountered in order to get the dorsiflexory contracture out of the toe. A linear incision was made at two locations 4 mm apart from one another and the plantar plate then repaired tightening the plantar plate in the more approximated position and bringing the toe into the same plane as the remaining toe. Following this, copious amounts of sterile saline were once again utilized to flush the surgical site. 2-0 Vicryl was utilized to repair the plantar plate. 4-0 Monocryl was then utilized to coapt the subcutaneous skin edges and 3-0 Nylon was then utilized to coapt the skin in horizontal mattress everted-type fashion. A dressing consisting of Betadine, Adaptic, 4x4, Kerlix and ACACIA were applied to the patient's left lower extremity. The patient was reversed from anesthesia and returned to the postoperative anesthesia care unit with vital signs stable and vascular status intact. The patient handled the anesthesia as well as the procedure without significant complication. Postoperative orders as indicated in the patient's discharge chart.
== END 2023-01-11 14:05 | disposition home or self-care (01) ==
LOC: SDC 09:56
PROVIDERS: ATTEND Podiatrist Foot & Ankle Surgery
DX: M67.472 Ganglion, left ankle and foot (principal); M20.42 Other hammer toe(s) (acquired), left foot; M79.672 Pain in left foot; M24.575 Contracture, left foot
CPT/HCPCS: 73630; 76000; J0690; J2250; J2704; J3010